=== PATIENT | female | born 2000 | race American Indian/Alaskan Native ===

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

== ENCOUNTER 2021-04-08 17:34 | Emergency (ER) | payer SELFPAY ==
[2021-04-08 19:53] VITALS: BP 97/47
--- NOTE | 2021-04-08 20:00 | Event Note ---
ED Screening Note Date of service: 04/08/21 Time: 19:59 ED Screening Note: 20-year-old female patient presents emergency department with complaints of progressively worsening vaginal discharge and irritation for 2 weeks. States she is concerned about possible STD exposure. Also endorses painful urination. Last menstrual cycle was end of February. General: Awake, appropriately interactive, no acute distress. Neck: Supple. Full range of motion intact. Cardiovascular: Normal peripheral perfusion. Pulmonary: No respiratory distress. Patient is speaking normally without use of accessory muscles. Skin: No apparent rashes or lesions. Neurological: No facial asymmetry. Speech is clear. Follows commands. Patient is alert and oriented. Musculoskeletal: Moves all four extremities spontaneously with normal range of motion. Psych: Cooperative. Appropriate mood and affect. I have greeted and performed a focused rapid initial assessment of this patient. A comprehensive ED assessment and evaluation of the patient, analysis of all test results, and completion of the medical decision-making process will be conducted by additional ED providers. This initial assessment/diagnostic orders/clinical plan/treatment(s) is/are subject to change based on patients health status, clinical progression and re-assessment. Further treatment and workup at subsequent clinical provider's discretion. Patient/guardian urged not to elope from the ED as their condition may be serious if not clinically as sessed and managed.
--- NOTE | 2021-04-08 20:50 | Emergency Department Report ---
ED Female HPI - General Chief complaint: Urogenital-Female Stated complaint: UTI Time Seen by Provider: 04/08/21 20:41 Source: patient Mode of arrival: Ambulatory Limitations: Language Barrier - History of Present Illness Initial comments: 20-year-old female presents to the ER today with complaints of vaginal itching and burning for 2 weeks as well as vaginal discharge and she states that she feels like her symptoms are got worse over the past 2 days. She reports dysuria but no other UTI symptoms. She denies any abdominal/pelvic pain. He states her last menstrual cycle was March 21. She denies any abnormal vaginal bleeding. Patient states that the sexual partner that she currently has, is a off-and-on partner that she has had for a while. She reports no other symptoms at this time. MD Complaint: vaginal discharge, dysuria -: week(s) (2) - Related Data Previous Rx's Medication Instructions Recorded Last Taken Type Cyclobenzaprine [Flexeril] 10 mg PO QHS PRN #8 tablet 04/29/20 Unknown Rx Ibuprofen [Motrin] 600 mg PO Q8H PRN #24 tablet 04/29/20 Unknown Rx Ibuprofen [Motrin 600 MG tab] 600 mg PO Q8H PRN #15 tablet 11/08/20 Unknown Rx DOXYCYCLINE Hyclate [Vibramycin 100 mg PO Q12HR #14 capsule 04/08/21 Unknown Rx CAP] metroNIDAZOLE [Flagyl] 500 mg PO Q12HR #14 tab 04/08/21 Unknown Rx Allergies Allergy/AdvReac Type Severity Reaction Status Date / Time bee venom protein (honey bee) Allergy Hives Verified 04/28/20 22:37 Fish Containing Products Allergy Hives Verified 04/28/20 22:37 loratadine [From Claritin-D] Allergy Unknown Verified 04/28/20 22:37 pseudoephedrine Allergy Unknown Verified 04/28/20 22:37 [From Claritin-D] ED Review of Systems ROS: Stated complaint: UTI Other details as noted in HPI Comment: All other systems reviewed and negative Constitutional: denies: chills, fever Respiratory: denies: cough, shortness of breath, SOB with exertion, SOB at rest, wheezing Cardiovascular: denies: chest pain, palpitations Gastrointestinal: denies: abdominal pain, nausea, vomiting, diarrhea, c onstipation, hematemesis, melena, hematochezia Genitourinary: discharge, other (vaginal itching). denies: urgency, dysuria, frequency, hematuria, abnormal menses, dyspareunia Skin: pruritus. denies: rash Neurological: denies: headache, weakness, numbness, paresthesias, confusion, abnormal gait, vertigo Psychiatric: denies: anxiety, depression, auditory hallucinations, visual hallucinations, homicidal thoughts, suicidal thoughts Hematological/Lymphatic: denies: easy bleeding, easy bruising ED Past Medical Hx - Past Medical History Previous Medical History?: No - Surgical History Past Surgical History?: No - Social History Smoking Status: Never Smoker Substance Use Type: Marijuana - Medications Home Medications: Home Medications Medication Instructions Recorded Confirmed Last Taken Type Cyclobenzaprine [Flexeril] 10 mg PO QHS PRN #8 tablet 04/29/20 Unknown Rx Ibuprofen [Motrin] 600 mg PO Q8H PRN #24 tablet 04/29/20 Unknown Rx Ibuprofen [Motrin 600 MG tab] 600 mg PO Q8H PRN #15 tablet 11/08/20 Unknown Rx DOXYCYCLINE Hyclate [Vibramycin 100 mg PO Q12HR #14 capsule 04/08/21 Unknown Rx CAP] metroNIDAZOLE [Flagyl] 500 mg PO Q12HR #14 tab 04/08/21 Unknown Rx ED Physical Exam - General Limitations: Language Barrier General appearance: alert, in no apparent distress - Head Head exam: Present: atraumatic, normocephalic, normal inspection - Eye Eye exam: Present: normal appearance, PERRL, EOMI Pupils: Present: normal accommodation - ENT ENT exam: Present: normal exam, mucous membranes moist - Neck Neck exam: Present: normal inspection, full ROM - Respiratory Respiratory exam: Present: normal lung sounds bilaterally. Absent: respiratory distress - Cardiovascular Cardiovascular Exam: Present: regular rate - GI/Abdominal GI/Abdominal exam: Present: soft. Absent: distended, tenderness, guarding, rebound, rigid ED Course Vital Signs 04/08/21 19:27 Temperature 98.2 F Pulse Rate 73 Respiratory 16 Rate Blood Pressure 97/47 O2 Sat by Pulse 100 Oximetry Critical care attestation.: If time is entered above; I have spent that time in minutes in the direct care of this critically ill patient, excluding procedure time. ED Disposition Clinical Impression: Trichomonas vaginitis, UTI (urinary tract infection) Disposition: DC-01 TO HOME OR SELFCARE Is pt being admited?: No Does the pt Need Aspirin: No Condition: Stable Instructions: Urinary Tract Infection, Adult, Trichomoniasis Additional Instructions: I recommend I take the Flagyl and the doxycyline as prescribed. Do not drink alcohol while taking the flagyl. Make sure you take the antibiotics with a good meal to prevent GI upset. I recommend that you practice safe sex. Your partner should also be tested and treated especially for the trichomonas. Follow-up with [facility] listed on your discharge instructions. Return to the ER if your symptoms changes or worsens in any way. Prescriptions: metroNIDAZOLE [Flagyl] 500 mg PO Q12HR #14 tab DOXYCYCLINE Hyclate [Vibramycin CAP] 100 mg PO Q12HR #14 capsule Referrals: [facility] [Provider Group] - 3-5 Days [facility] [Provider Group] - 3-5 Days Time of Disposition: 21:26
[2021-04-08 20:51] LABS: HCG Qualitative,Urine Negative (Negative)
[2021-04-08 20:52] LABS: Bacteria,Urine 1+ /HPF (Negative); Bilirubin,Urine NEG (Negative); Blood,Urine NEG (Negative); Color,Urine Straw (Yellow); Protein,Urine <15 mg/dL mg/dL (Negative); Urobilinogen,Urine < 2.0 mg/dL (<2.0)
[2021-04-08] MEDS ORDERED: LIDOCAINE-MPF (1%) 10 MG/1 ML VIAL 5 ML INFILTRATI ONE (21:22)
== END 2021-04-08 21:55 | disposition home or self-care (01) ==
LOC: ED 17:34
DX: A59.01 Trichomonal vulvovaginitis (principal); N39.0 Urinary tract infection, site not specified; F12.90 Cannabis use, unspecified, uncomplicated; Z79.899 Other long term (current) drug therapy
CPT/HCPCS: 81001; 81025; 87086; 87210; 87591; 96372; 99283; J0696

== ENCOUNTER 2021-04-13 04:43 | Emergency (ER) | payer SELFPAY ==
--- NOTE | 2021-04-13 05:19 | Emergency Department Report ---
ED Female HPI - General Chief complaint: Urogenital-Female Stated complaint: VAGINA RT LIP SWOLLEN Source: patient Mode of arrival: Ambulatory Limitations: No Limitations - History of Present Illness Initial comments: Patient is a nulliparous 20-year-old -Turkish female with no past medical history presents to the ED with complaint of acute onset persistent painful right labium majora swelling and pain with itching and irritation for the last 5 hours. Patient states that she is currently taking metronidazole and doxycycline for trichomonas infection that was transmitted to her through sexual intercourse with her boyfriend. Patient also is currently taking doxycycline for suspected STD and UTI. Patient denies vaginal bleeding, vaginal discharge, fever, chills, nausea, vomiting, dyspareunia, low back pain, chest pain or shortness of breath, dysuria or urinary frequency and urgency. MD Complaint: other (Vaginal pain and swelling; vaginal itching) -: Sudden, hour(s) (5) Location: labia (Right labium majora swelling and pain), other (Vaginal itching) Radiation: non-radiating Severity: severe Severity scale (0 -10): 7 Quality: sharp, aching, other (Itching) Consistency: constant Improves with: none Worsens with: none Are you Now?: No Associated Symptoms: denies other symptoms, rash (Vaginal itching rash), other (Vaginal itching). denies: vaginal discharge, vaginal bleeding, abdominal pain, nausea/vomiting, fever/chills, headaches, loss of appetite, dysuria, hematuria - Related Data Sexually active: Yes : 0 Para: 0 A: 0 Previous Rx's Medication Instructions Recorded Last Taken Type Cyclobenzaprine [Flexeril] 10 mg PO QHS PRN #8 tablet 04/29/20 Unknown Rx Ibuprofen [Motrin] 600 mg PO Q8H PRN #24 tablet 04/29/20 Unknown Rx Ibuprofen [Motrin 600 MG tab] 600 mg PO Q8H PRN #15 tablet 11/08/20 Unknown Rx DOXYCYCLINE Hyclate [Vibramycin 100 mg PO Q12HR #14 capsule 04/08/21 Unknown Rx CAP] metroNIDAZOLE [Flagyl] 500 mg PO Q12HR #14 tab 04/08/21 Unknown Rx Fluconazole [Diflucan TAB] 200 mg PO QDAY #3 tablet 04/13/21 Unknown Rx Ibuprofen [Motrin] 600 mg PO Q8H PRN #20 tablet 04/13/21 Unknown Rx Allergies Allergy/AdvReac Type Severity Reaction Status Date / Time bee venom protein (honey bee) Allergy Hives Verified 04/28/20 22:37 Fish Containing Products Allergy Hives Verified 04/28/20 22:37 loratadine [From Claritin-D] Allergy Unknown Verified 04/28/20 22:37 pseudoephedrine Allergy Unknown Verified 04/28/20 22:37 [From Claritin-D] ED Review of Systems ROS: Stated complaint: VAGINA RT LIP SWOLLEN Other details as noted in HPI Constitutional: denies: chills, fever Eyes: denies: eye pain, eye discharge, vision change ENT: denies: ear pain, throat pain Respiratory: denies: cough, shortness of breath, wheezing Cardiovascular: denies: chest pain, palpitations Endocrine: no symptoms reported Gastrointestinal: denies: abdominal pain, nausea, diarrhea Genitourinary: other (Vaginal itching and irritation; right labia majora pain and swelling). denies: urgency, dysuria, discharge Musculoskeletal: denies: back pain, joint swelling, arthralgia Skin: other. denies: rash, lesions Neurological: denies: headache, weakness, paresthesias Psychiatric: denies: anxiety, depression Hematological/Lymphatic: denies: easy bleeding, easy bruising ED Past Medical Hx - Past Medical History Previous Medical History?: No (Vaginal irritation and pain) - Surgical History Past Surgical History?: No - Social History Smoking Status: Never Smoker Substance Use Type: None - Medications Home Medications: Home Medications Medication Instructions Recorded Confirmed Last Taken Type Cyclobenzaprine [Flexeril] 10 mg PO QHS PRN #8 tablet 04/29/20 Unknown Rx Ibuprofen [Motrin] 600 mg PO Q8H PRN #24 tablet 04/29/20 Unknown Rx Ibuprofen [Motrin 600 MG tab] 600 mg PO Q8H PRN #15 tablet 11/08/20 Unknown Rx DOXYCYCLINE Hyclate [Vibramycin 100 mg PO Q12HR #14 capsule 04/08/21 Unknown Rx CAP] metroNIDAZOLE [Flagyl] 500 mg PO Q12HR #14 tab 04/08/21 Unknown Rx Fluconazole [Diflucan TAB] 200 mg PO QDAY #3 tablet 04/13/21 Unknown Rx Ibuprofen [Motrin] 600 mg PO Q8H PRN #20 tablet 04/13/21 Unknown Rx ED Physical Exam - General Limitations: No Limitations General appearance: alert, in no apparent distress - Head Head exam: Present: atraumatic, normocephalic, normal inspection - Eye Eye exam: Present: normal appearance, PERRL, EOMI Pupils: Present: normal accommodation - ENT ENT exam: Present: normal exam, normal orophraynx, mucous membranes moist, TM's normal bilaterally, normal external ear exam - Neck Neck exam: Present: normal inspection, full ROM - Respiratory Respiratory exam: Present: normal lung sounds bilaterally. Absent: respiratory distress, wheezes, rhonchi, chest wall tenderness, accessory muscle use, decreased breath sounds, prolonged expiratory - Cardiovascular Cardiovascular Exam: Present: regular rate, normal rhythm, normal heart sounds. Absent: systolic murmur, diastolic murmur, rubs, gallop - GI/Abdominal GI/Abdominal exam: Present: soft, normal bowel sounds. 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 Absent: tenderness, CVA tenderness (R), CVA tenderness (L), muscle spasm - Neurological Exam Neurological exam: Present: alert, oriented X3, CN II-XII intact, normal gait, reflexes normal - Psychiatric Psychiatric exam: Present: normal affect, normal mood - Skin Skin exam: Present: warm, dry, intact, normal color. Absent: rash ED Course Vital Signs 04/13/21 05:47 Temperature 98.7 F Pulse Rate 86 Respiratory 18 Rate Blood Pressure 98/55 O2 Sat by Pulse 97 Oximetry ED Medical Decision Making - Medical Decision Making This is a nulliparous 20-year-old -Turkish female with no past medical history presents to the ED with complaint of acute onset persistent painful ri ght labium majora swelling and pain with itching and irritation for the last 5 hours. Patient states that she is currently taking metronidazole and doxycycline for trichomonas infection that was transmitted to her through sexual intercourse with her boyfriend. Patient also is currently taking doxycycline for suspected STD and UTI. In the ED, patient is alert and oriented x3 and is not in any distress. Physical exam reveals mild erythematous irritated right labium majora due to extensive scratching due to itching suspected to be due to vaginal yeast since the patient has been taking metronidazole and doxycycline for the last 4 days. Patient was therefore discharged home on a prescription of Diflucan and pain medications and was advised to finish taking all the previously prescribed antibiotics and to follow-up with her [employer] physician or primary care physician in 7 to 10 days for reevaluation. Patient is advised return to the ED immediately if symptoms get worse. - Differential Diagnosis Jennifer vaginitis; bacterial vaginosis; genital herpes; Critical care attestation.: If time is entered above; I have spent that time in minutes in the direct care of this critically ill patient, excluding procedure time. ED Disposition Clinical Impression: Candidal vaginitis, Vaginal irritation Disposition: TO HOME OR SELFCARE Is pt being admited?: No Does the pt Need Aspirin: No Condition: Stable Instructions: Vaginitis, [id number], Vaginal Yeast Infection, Adult Additional Instructions: Continue taking the previously prescribed antibiotics, and in addition take the antifungal medication as advised. Follow-up with your [employer] physician or primary care physician in 7 to 10 days for reevaluation. Return to the ED immediately if symptoms get worse. Prescriptions: Fluconazole [Diflucan TAB] 200 mg PO QDAY #3 tablet Ibuprofen [Motrin] 600 mg PO Q8H PRN #20 tablet PRN Reason: Pain Referrals: [facility] [Provider Group] - 3-5 Days Forms: Work/School Release Form(ED) Time of Disposition: 05:37 Print Language: FRENCH
[2021-04-13 05:48] VITALS: BP 98/55
== END 2021-04-13 05:40 | disposition home or self-care (01) ==
LOC: ED 04:43
DX: B37.3 Candidiasis of vulva and vagina (principal); N76.89 Other specified inflammation of vagina and vulva; Z91.013 Allergy to seafood; Z91.030 Bee allergy status; Z88.8 Allergy status to other drugs, medicaments and biological substances; Z79.899 Other long term (current) drug therapy
CPT/HCPCS: 99281; 99283